=== PATIENT | female | born 1960 | race Caucasian/White ===

== ENCOUNTER 2019-03-12 16:16 | Emergency (ER) | payer BC | END 2019-03-12 16:25 | disposition left against medical advice (07) | LOC: ED 16:16 | DX: Z53.9 Procedure and treatment not carried out, unspecified reason (principal) | CPT/HCPCS: 99281 ==

== ENCOUNTER 2021-08-21 08:37 | Day surgery (SDC) | payer BC ==
--- NOTE | 2021-08-21 07:57 | HP ---
AMENDED REPORT: DATE OF SURGERY: 08/21/2021 HISTORY OF PRESENT ILLNESS: The patient is a 60-year-old with no bloody stools, no change in bowel movements. She has a family history of colon cancer. She is due for follow up colonoscopy with history of polyps in the past. PAST MEDICAL HISTORY: Hypothyroidism, osteoarthritis, hypertension. The patient had some aspiration in the past. PAST SURGICAL HISTORY: Hysterectomy. Tubal ligation. Cholecystectomy. Cardiac cath. She had upper endoscopy and Alirio-en-Y in the past. She had rotator cuff, knee replaced in the past. Appendectomy. She had a modified Alirio-en-Y, she said. MEDICATIONS: Pravastatin, hydrochlorothiazide, potassium. ALLERGIES: NKDA. FAMILY HISTORY: Colon cancer, breast cancer, heart disease, pancreatic cancer, lymphoma. SOCIAL HISTORY: No smoking or alcohol abuse. REVIEW OF SYSTEMS: Fourteen systems reviewed. Negative or noncontributory as above and per preadmission questionnaire. PHYSICAL EXAMINATION: GENERAL: No acute distress. HEENT: Sclerae nonicteric. NECK: No JVD. CHEST: Equal excursion, nonlabored breathing. CVS: Regular rate and rhythm. ABDOMEN: Soft. No peritoneal signs. EXTREMITIES: No significant edema. NEURO: Alert, oriented, moving extremities symmetrically. RECTAL: Deferred timed to endoscopy exam. PSYCH: Appropriate mood and affect. IMPRESSION: Family history of colon cancer, prior history of polyps in the past. She is in need of follow up screening colonoscopy. I feel she is a candidate. General risk of bleeding or infection, risk of bowel injury or perforation possibly requiring open procedure, risk of missed or nondiagnosis or incomplete exam possibly requiring barium enema, other studies or procedures, general risk of anesthesia or sedation, risk of bowel prep but not limited to, consent obtained. Will proceed with follow up colonoscopy under MAC anesthesia.
[~2021-08-21 08:37] MED LIST: Lactated Ringers 1,000 ML IV ONE; Lactated Ringers 1,000 ML IV SCH
[2021-08-21] MEDS ORDERED: DIPRIVAN 200 MG/20 ML IV ONE ×2 (10:35→10:53)
[2021-08-21] MEDS ORDERED: Xylocaine-Mpf 2% 5 Ml Vial ONE (10:35)
[2021-08-21] MEDS ORDERED: Lactated Ringers 1,000 ML IV ONE (10:58)
[2021-08-21 12:02] VITALS: O2SAT 98
[2021-08-21 12:05] VITALS: BP 151/91; PULSE 49
--- NOTE | 2021-08-22 09:56 | OP ---
SURGERY DATE/TIME: 08/21/2021 1041 PREOPERATIVE DIAGNOSIS: History of polyps and family history of colon cancer, need for follow up screening colonoscopy. POSTOPERATIVE DIAGNOSES: 1) ASA Class II. 2) Fair bowel prep. 3) Sessile polyps transverse colon. 4) Small early polyp versus hyperplastic lesion rectum. 5) Fair bowel prep. PROCEDURES: 1) Colonoscopy to cecum. 2) Hot snare polypectomy transverse colon polyp. 3) Hot biopsy polypectomy small rectal polyp. SURGEON: Dr. Naopleon Vo. ANESTHESIA: MAC. ESTIMATED BLOOD LOSS: Minimal. INDICATIONS: As noted above. Risks and benefits explained in detail but not limited to and consent obtained. DESCRIPTION OF PROCEDURE AND FINDINGS: The patient is taken to the endoscopy room. MAC anesthesia introduced. After official time out and no disagreement with planned procedure, digital rectal exam did not reveal any rectal masses. Video colonoscope inserted and passed up through the tortuous sigmoid, descending, transverse, ascending colon around to the cecum. Appendiceal orifice and valve well visualized and photo documented. Prep overall was fair. There was a little bit of liquidy semi-solid stool throughout the colon this limited exam for very small lesions. It was suction irrigated as clear as possible but did slightly limit the exam. The scope is slowly and carefully withdrawn over the next eight minutes. In the proximal half of the transverse colon, there is a sessile polyp. It was removed with hot snare polypectomy with brief bursts of cautery elevating well away from the abdominal wall. The base appeared to be viable. Good hemostasis noted. It was retrieved according to staff. The scope is carefully withdrawn back through the descending and sigmoid colon to rectum. Just a small early polyp versus hyperplastic lesion removed with hot biopsy forceps with brief bursts of cautery. Good hemostasis noted. There were no signs of any other large polyps, masses or obstructing lesions. Given the sessile nature of the polyp in the proximal transverse colon and rectum and family history of colon cancer, it was recommended to schedule follow up colonoscopy in two years or no later than three. I will discuss with the patient back in the office.
== END 2021-08-21 12:15 | disposition home or self-care (01) ==
LOC: SDC 08:37
PROVIDERS: ATTEND Surgery
DX: Z09 Encounter for follow-up examination after completed treatment for conditions other than malignant neoplasm (principal); D12.3 Benign neoplasm of transverse colon; D12.8 Benign neoplasm of rectum; Z80.0 Family history of malignant neoplasm of digestive organs; Z86.010 Personal history of colon polyps
CPT/HCPCS: 88305; J2704

== ENCOUNTER 2022-01-10 09:41 | Day surgery (SDC) | payer BC ==
[2022-01-10] MEDS ORDERED: Marcaine Mpf 0.5% Vial 30 Ml IJ ONE (09:42)
[2022-01-10] MEDS ORDERED: Depo-Medrol 40 MG/ML IM ONE (09:42)
[2022-01-10] MEDS ORDERED: Lactated Ringers 1,000 ML IV ONE (09:42)
[2022-01-10] MEDS ORDERED: DIPRIVAN 200 MG/20 ML IV ONE (10:53)
--- NOTE | 2022-01-10 11:38 | XRAY ---
Indication: Right SI joint injection. Intraoperative fluoroscopy provided for 15 seconds. 2 digital spot image submitted for interpretation demonstrates posterior needle tip projecting over the inferior right SI joint. Correlate with intraoperative findings/report.
--- NOTE | 2022-01-10 12:03 | XRAY ---
15 seconds of fluoroscopy was used in surgery for a right SI injection.
== END 2022-01-10 11:17 | disposition home or self-care (01) ==
LOC: SDC-PAIN 09:41
PROVIDERS: ATTEND Psychiatry & Neurology Pain Medicine
DX: M46.1 Sacroiliitis, not elsewhere classified (principal); Z79.899 Other long term (current) drug therapy
CPT/HCPCS: 27096; 72170; 77002; J1030; J2704; G0260

== ENCOUNTER 2022-02-28 09:29 | Day surgery (SDC) | payer BC ==
[2022-02-28] MEDS ORDERED: XYLOCAINE-MPF 1% 5ML SDV IJ ONE (09:30)
[2022-02-28] MEDS ORDERED: Decadron 4 MG INJ IV ONE (09:30)
[2022-02-28] MEDS ORDERED: DIPRIVAN 200 MG/20 ML IV ONE (10:57)
[2022-02-28] MEDS ORDERED: Lactated Ringers 1,000 ML IV ONE (12:02)
--- NOTE | 2022-02-28 12:07 | XRAY ---
13 seconds fluoroscopy time in surgery for injection of the right piriformis muscle.
--- NOTE | 2022-02-28 12:19 | XRAY ---
Indication: Right piriformis injection. Intraoperative fluoroscopy provided for 13 seconds. Single digital spot image submitted for interpretation demonstrates posterior needle tip projecting over the right piriformis muscle. Small amount of contrast injected for needle tip placement. Correlate with intraoperative findings/report.
== END 2022-02-28 11:20 | disposition home or self-care (01) ==
LOC: SDC-PAIN 09:29
PROVIDERS: ATTEND Psychiatry & Neurology Pain Medicine
DX: M79.18 Myalgia, other site (principal); Z79.899 Other long term (current) drug therapy
CPT/HCPCS: 20552; 72170; 77002; J1100; J2704; Q9966

== ENCOUNTER 2023-11-20 10:14 | Day surgery (SDC) | payer BC ==
[2023-11-20] MEDS ORDERED: LIDOCAINE HCL 1% 50 MG/5 ML VL PF IJ ONE (10:15)
[2023-11-20] MEDS ORDERED: BUPIVACAINE 0.5% VIAL IJ ONE (10:15)
[2023-11-20] MEDS ORDERED: Decadron 4 MG INJ IV ONE (10:15)
[2023-11-20] MEDS ORDERED: Depo-Medrol 40 MG/ML IM ONE (10:15)
[2023-11-20] MEDS ORDERED: DIPRIVAN 200 MG/20 ML IV ONE (12:03)
--- NOTE | 2023-11-20 12:29 | XRAY ---
Indication: Right SI joint and right piriformis injection. Intraoperative fluoroscopy provided for 20 seconds. 2 digital spot image submitted for interpretation demonstrates posterior needle tip projecting over right SI joint. Second needle tip over right piriformis. Small amount of contrast injected for both needle tip placement. Correlate with intraoperative findings/report.
--- NOTE | 2023-11-20 12:33 | XRAY ---
20 seconds of fluoroscopy was used in surgery for a right sacroiliac joint and piriformis injection.
[2023-11-20] MEDS ORDERED: Lactated Ringers 1,000 ML IV ONE (13:45)
== END 2023-11-20 12:30 | disposition home or self-care (01) ==
LOC: SDC-PAIN 10:14
PROVIDERS: ATTEND Psychiatry & Neurology Pain Medicine
DX: M46.1 Sacroiliitis, not elsewhere classified (principal); M79.18 Myalgia, other site
CPT/HCPCS: 20552; 27096; 72170; 77002; J1010; J1100; J2001; J2704; Q9966; G0260

== ENCOUNTER 2024-10-05 08:27 | Day surgery (SDC) | payer BC ==
[2024-10-05] MEDS: Lactated Ringers 1,000 ML IV SCH (08:37)
[2024-10-05 08:46] VITALS: RESP 16
[2024-10-05 09:16] LABS: ANION GAP 13.2 MEQ/L (5-15); Calcium 9.1 mg/dL (8.4-10.2); Creatinine 1 0.91 mg/dL (0.52-1.04); EST GLOMERULAR FILTRATION RATE 70.5 ML/MIN
--- NOTE | 2024-10-05 09:23 | HP ---
HISTORY OF PRESENT ILLNESS: Patient with history of polyps. Strong family history of colon cancer in grandmother, uncle x2, and an aunt had colon cancer. She denies any bloody stools. She is in need of followup screening colonoscopy. Additionally, she has some epigastric pain or burning to her back. Also is in need of upper endoscopy to evaluate for peptic ulcer disease, marginal ulcer or gastritis. She has had a history of Alirio-en-Y in the past. PAST MEDICAL HISTORY: She has history of depression. HOME MEDICATIONS: Vitamin B12, multivitamin, Estradiol, methenamine, naltrexone, spironolactone, bupropion, nitrofurantoin. ALLERGIES: NSAIDs, adhesives. PAST SURGICAL HISTORY: Had right knee arthroplasty. She had Alirio-en-Y gastric bypass in the past, she had rotator cuff surgery, she had cholecystectomy in the past, hysterectomy in the past. SOCIAL HISTORY: No smoking. No alcohol abuse. FAMILY HISTORY: Colon cancer, history of PE in the family. REVIEW OF SYSTEMS: Twelve systems reviewed. Pertinent for problems as noted above. Other systems negative or noncontributory as above and per preadmission questionnaire. PHYSICAL EXAMINATION: GENERAL: Height 5 feet 4 inches. BMI 25. No acute distress. HEENT: Sclerae anicteric. NECK: No JVD. CARDIOVASCULAR: Regular rate and rhythm. RESPIRATORY: Equal excursion, nonlabored breathing. ABDOMEN: Soft. SKIN: Dry. EXTREMITIES: No cyanosis or edema. NEUROLOGIC: Alert. Moving all extremities symmetrically. PSYCHIATRIC: Appropriate mood and affect. RECTAL: Deferred until time of endoscopy. IMPRESSION: History of polyps 3 years ago, family history of several relatives with colon cancer. The patient also has had some epigastric pain or burning to her back. History of Alirio-en-Y in the past. Needs EGD to evaluate for peptic ulcer disease or gastritis and needs followup screening colonoscopy. Risks explained in detail but not limited to bleeding, infection; risk of bowel injury or perforation; risk of missed or nondiagnosis or incomplete exam possibly requiring barium enema or other studies or procedures; risk of bowel prep or sedation, but not limited to. We will proceed with EGD and colonoscopy as an outpatient under MAC anesthesia. Otherwise, continue medications for history of depression.
[2024-10-05] MEDS ORDERED: propofoL IV ONE ×3 (10:35→11:05)
[2024-10-05] MEDS ORDERED: Xylocaine-Mpf 2% 5 Ml Vial ONE (10:35)
[2024-10-05] MEDS ORDERED: Versed 2 MG/2 ML Injection ONE (10:36)
[2024-10-05] MEDS ORDERED: PHENYLEPHRINE HCL ONE (11:11)
[2024-10-05 11:58] VITALS: O2SAT 98
[2024-10-05 12:03] VITALS: BP 128/72; PULSE 63; TEMP 97.8
--- NOTE | 2024-10-06 11:59 | OP ---
SURGERY DATE/TIME: 10/05/2024 [id number] PREOPERATIVE DIAGNOSES: 1) History of polyps, strong family history of colon cancer, needs a followup screening colonoscopy. 2) History of epigastric pain, history of Alirio-en-Y gastric bypass. POSTOPERATIVE DIAGNOSES: 1) Withdrawal time on the colonoscopy 9 minutes. 2) ASA Class 2. 3) Jejunal inflammation, jejunal side gastrojejunal anastomosis. 4) Friable stomach with minimal erythema. 5) A couple of millimeters short segment distal esophagitis. 6) Small early polyp vs hyperplastic lesion, sigmoid colon. PROCEDURE: 1) Esophagogastrojejunostomy with cold biopsy of the small bowel. 2) Cold biopsy of the small bowel. 3) Cold biopsy of the stomach, cold biopsy distal esophagus to evaluate for very short segment distal esophagitis. 4) Colonoscopy to the cecum, hot biopsy, small early sigmoid colon polyp versus hyperplastic lesion. SURGEON: Alfredito Vo MD ANESTHESIA: MAC. DESCRIPTION OF PROCEDURE AND FINDINGS: The patient was taken to the operating room. MAC anesthesia induced. After official time-out, no disagreement in planned procedure. Bite block positioned. Videogastroscope easily passed down the esophagus through the GJ junction. It should be noted on the jejunal side, there was some erythema. There was no gross ulceration, but definitely some jejunitis at this area. A couple of sutures from her prior gastric Alirio-en-Y bypass were noted. There was no gross marginal ulcer. The scope was able to be passed through the inflammation to the jejunum. The more distal jejunum was unremarkable. The proximal near the anastomosis was erythematous and inflamed. The scope pulled back into the stomach. Cold biopsy taken in the antrum for further evaluation. The mucosa was quite friable but there was no evidence of any ulcers. There is a short segment of a couple millimeters of very short segment distal esophagitis. Cold biopsy taken to evaluate the esophagus in this area. The remainder of the esophagus grossly unremarkable. Scope was withdrawn. Attention then turned to colonoscopy. Digital rectal exam did not reveal any rectal masses. Videocolonoscope inserted and passed up through the very tortuous sigmoid, descending, transverse, and ascending colon. With external pressure and positioned on her back and 2 different members pushing on the abdomen, the scope did finally reach the cecum. The appendiceal orifice was now well visualized and photo documented. Prep overall was good. Again, the colon was very tortuous. The scope was carefully withdrawn over the next 9 minutes. There were no signs of any large polyps, masses, or obstructing lesions. There was a very small early polyp versus hyperplastic lesion in the sigmoid colon. It was removed with hot biopsy forceps. Good hemostasis noted. The patient tolerated the procedure well. There were no signs of any large polyps, masses, or obstructing lesions. There were no immediate complications. Findings discussed with family out in the waiting area.
== END 2024-10-05 12:07 | disposition home or self-care (01) ==
LOC: SDC 08:27
PROVIDERS: ATTEND Surgery
DX: Z12.11 Encounter for screening for malignant neoplasm of colon (principal); Z09 Encounter for follow-up examination after completed treatment for conditions other than malignant neoplasm; Z86.0100 Personal history of colon polyps, unspecified; Z80.0 Family history of malignant neoplasm of digestive organs; Z87.19 Personal history of other diseases of the digestive system; Z98.84 Bariatric surgery status; K28.9 Gastrojejunal ulcer, unspecified as acute or chronic, without hemorrhage or perforation; D12.5 Benign neoplasm of sigmoid colon
CPT/HCPCS: 36415; 80048; 93005; J2250; J2371; J2704